=== PATIENT | male | born 1990 | race Hispanic/Latino ===

== ENCOUNTER 2024-05-01 07:25 | Emergency (ER) | payer OTHER ==
[~2024-05-01] VITALS: Ht 165.1 cm; Wt 79.4 kg
--- NOTE | 2024-05-01 07:30 | NUR ---
PT JUST PLACED IN ED BED 9
[2024-05-01 08:08] LABS: BASOPHILS # (AUTO) 0.07 K/uL (0.00-0.20); BASOPHILS % (AUTO) 0.3 % (0.0-5.0); EOSINOPHILS # (AUTO) 0.11 K/uL (0.00-0.70); EOSINOPHILS % (AUTO) 0.5 % (0.0-8.0); IMMATURE GRANULOCYTE ABSOLUTE 0.13 K/uL (0-1); LYMPHOCYTES % (AUTO) 8.5 % (21.0-51.0); MEAN CORPUSCULAR HEMOGLOBIN 30.8 pg (27.0-33.0); MEAN CORPUSCULAR HGB CONC 35.5 g/dL (32.0-36.0); MONOCYTES # (AUTO) 1.2 K/uL (0.1-1.0); MONOCYTES % (AUTO) 4.8 % (3.0-13.0); NEUTROPHILS # (AUTO) 20.4 K/uL (1.8-7.7); NEUTROPHILS % (AUTO) 85.4 % (40.0-77.0); PLATELET COUNT (AUTO) 284 K/uL (130-400); RED BLOOD CELL COUNT(AUTO) 5.06 MIL/uL (4.50-6.20); RED CELL DISTRIBUTION WIDTH 12.2 % (11.0-15.5); WHITE BLOOD COUNT (AUTO) 23.9 K/uL (4.8-10.8)
[2024-05-01 08:13] LABS: CREATININE 1.2 mg/dL (0.5-1.3); POTASSIUM 3.3 mmol/L (3.5-5.1)
--- NOTE | 2024-05-01 08:23 | ERN ---
ED Note History of Present Illness Stated Complaint: CP Chief Complaint: Chest Pain Time Seen by MD: 07:30 Dictation: 34-year-old male presents to the ED for evaluation of chest pain onset [employer]. Patient reports he was working when suddenly he felt chest pain, chest pressure and shortness a breath. As per patient he has not had a similar episode before. Allergies: Coded Allergies: No Known Allergies (Unverified Allergy, Unknown, 05/01/24) Past Medical History Past Medical History: No Pertinent History Surgical History: None Review of System Dictation Constitutional: Negative for fever,chills, and weight loss Eyes: Negative for injury, pain,redness, and discharge ENT: Negative for injury,pain or swelling Cardiovascular: Positive for chest pain, negative for palpitations, and edema Respiratory: Positive for shortness of breath, negative for cough, and wheezing, Abdomen/GI: Negative for abdominal pain, nausea, vomiting, diarrhea, and constipation Back: Negative for injury and pain : Negative for injury, bleeding and discharge MS/Extremity: Negative for injury and deformity Skin: Negative for rash, and discoloration Neuro: Negative for headache, weakness, numbness, tingling, and seizure Psych: Negative for suicide ideation, homicidal ideation, and hallucinations Initial Vital Sign VS Vital Signs Date Time Temp Pulse Resp B/P (MAP) Pulse Ox O2 Delivery O2 Flow Rate FiO2 05/01/24 07:28 98.6 79 18 156/86 98 05/01/24 07:40 Room Air* 0 21 Physical Exam Dictation General: awake, alert, NAD Head/Face: Normocephalic, atraumatic Eyes: PERRL, EOMI, vision at baseline ENT: oral cavity clear, TMs clear, no signs of infection Neck: Trachea midline, supple, no nuchal rigidity Cardiovascular: Tachycardic No MRGs, no JVD Respiratory: CTAB, no respiratory distress, No rales or wheezes Abdomen: Soft, non-tender, non-distended, normal bowel sounds, no guarding or rebound. Skin: Warm, dry, normal turgor, no rash MS/Extremity: Pulses equal, no cyanosis, neurovascular intact, FROM Neuro: COAx4, GCS 15, strength 5/5, CN 2-12 intact, normal cerebellar exam, normal gait, Psych: Normal behavior, mood, and affect normal Results (Laboratory/Radiology) Laboratory/Radiology Laboratory Tests Test 11/27/24 07:43 05/01/24 08:26 05/01/24 08:49 05/01/24 09:19 White Blood Count 23.9 K/uL (4.8-10.8) H Red Blood Count 5.06 MIL/uL (4.50-6.20) Hemoglobin 15.6 g/dL (14.0-18.0) Hematocrit 44.0 % (42-54) Mean Corpuscular Volume 87.0 fL (79-99) Mean Corpuscular Hemoglobin 30.8 pg (27.0-33.0) Mean Corpuscular Hemoglobin Concent 35.5 g/dL (32.0-36.0) Red Cell Distribution Width 12.2 % (11.0-15.5) Platelet Count 284 K/uL (130-400) Mean Platelet Volume 8.8 fL (7.5-10.5) Immature Granulocyte % (Auto) 0.5 % (0-1) Neutrophils (%) (Auto) 85.4 % (40.0-77.0) H Lymphocytes (%) (Auto) 8.5 % (21.0-51.0) L Monocytes (%) (Auto) 4.8 % (3.0-13.0) Eosinophils (%) (Auto) 0.5 % (0.0-8.0) Basophils (%) (Auto) 0.3 % (0.0-5.0) Neutrophils # (Auto) 20.4 K/uL (1.8-7.7) H Lymphocytes # (Auto) 2.0 K/uL (1.0-4.8) Monocytes # (Auto) 1.2 K/uL (0.1-1.0) H Eosinophils # (Auto) 0.11 K/uL (0.00-0.70) Basophils # (Auto) 0.07 K/uL (0.00-0.20) Absolute Immature Granulocyte (auto 0.13 K/uL (0-1) Nucleated Red Blood Cells 0.0 % (0.0-0.19) White Cell Morphology Comment See comments D-Dimer Quantitative (PE/DVT) 151 ng/mL (0-500) Sodium Level 135 mmol/L (136-145) L Potassium Level 3.3 mmol/L (3.5-5.1) L Chloride Level 97 mmol/L (101-111) L Carbon Dioxide Level 27 mmol/L (21-32) Blood Urea Nitrogen 15 mg/dL (7-18) Creatinine 1.2 mg/dL (0.5-1.3) Glomerular Filtration Rate Calc 82 mL/min (>90) Random Glucose 112 mg/dL (70-105) H Total Calcium 9.1 mg/dL (8.5-10.1) Troponin I High Sensitivity < 4 ng/L (4-75) L Troponin I < 0.05 ng/mL (0.00-0.05) Influenza Type A Antigen Negative For Type A Influenza Type B Antigen Negative For Type B SARS-CoV-2 Antigen (Rapid) PRESUMPTIVE NEGATIVE Urine Color COLORLESS (YELLOW) Urine Appearance CLEAR (CLEAR) Urine pH 6.0 (5.0-8.0) Urine Specific [place] 1.009 (1.001-1.031) Urine Protein NEGATIVE mg/dL (NEGATIVE) Urine Glucose (UA) NEGATIVE mg/dL (NEGATIVE) Urine Ketones NEGATIVE mg/dL (NEGATIVE) Urine Occult Blood NEGATIVE (NEGATIVE) Urine Nitrate NEGATIVE (NEGATIVE) Urine Bilirubin NEGATIVE mg/dL (NEGATIVE) Urine Urobilinogen 0.2 mg/dL (0.2-1.0) Urine Leukocyte Esterase NEGATIVE Mehran/uL Labs Reviewed?: Yes EKG Comment: EKG 05/01/2024 time 726 ventricular rate 117, sinus tachycardia, left axis deviation, ST elevation, consider inferior injury. No STEMI. X-RAY Comment: X-ray independently visualized by me REASON: CHEST PAIN ORDERING PHYSICIAN: JAYDE NEW MD PROCEDURE: CXR1VW - CHEST 1VW CHEST 1VW REASON: CHEST PAIN COMPARISON: None. FINDINGS: Single view of the chest was obtained. Lungs are clear. Heart size is normal. There is no pulmonary vascular congestion. Mediastinum and bony thorax appear unremarkable. IMPRESSION: 1. Normal single view chest x-ray. DICTATED BY: MARIAH KAM MD DATE: 05/01/24 0840 ED Course ED Course Orders Procedure Category Date Status Time Chest 1vw RAD 05/01/24 Resulted 07:31 12 Lead Ekg Tracing- EKG 05/01/24 Complete Technical 07:31 Cbc With Differential LAB 05/01/24 Complete 07:31 Urinalysis Profile LAB 05/01/24 Complete 07:31 Troponin Poc Order LAB 05/01/24 Complete Only 07:31 Basic Metabolic Panel LAB 05/01/24 Complete 07:31 D-Dimer LAB 05/01/24 Complete 08:13 Covid19 (Sars Antigen LAB 05/01/24 Complete Rapid) 08:42 Influenza Type A & B, LAB 05/01/24 Complete Rapid 08:42 0.9%Nacl 1000ml (Ns PHA 05/01/24 Complete 1000ml) 09:00 Troponin I High LAB 05/01/24 Complete Sensitivity 09:27 Current Medications Medications (Trade) Dose Ordered Sig/Sissy Route PRN Reason Start Time Stop Time Status Last Admin Dose Admin Sodium Chloride 1,000 ml @ 0 mls/hr ONCE ONCE IV 05/01/24 09:00 05/01/24 09:01 DC 05/01/24 08:51 Vital Signs Date Time Temp Pulse Resp B/P (MAP) Pulse Ox O2 Delivery O2 Flow Rate FiO2 05/01/24 10:25 98.6 97 20 124/79 98 Room Air* 0 05/01/24 08:51 98.6 102 20 118/74 98 Room Air* 0 05/01/24 07:40 110 20 139/82 97 Room Air* 0 05/01/24 07:28 98.6 79 18 156/86 98 HEART Score Response (Comments) Value History: Low suspicion (0) 0 EKG: Normal 0 Age: < 45yrs (0) 0 Risk Factors: No known risk factors (0) 0 Initial Troponin: Normal limit (0) 0 HEART Score Risk: Low Risk for MACE (1-3) Total 0 Medical Decision Making MDM MDM: Differential diagnosis: Tachycardia, chest pain, palpitations Previous outside records reviewed: Old ER visits. Need for hospitalization: Patient does not meet criteria for hospitalization. Need for emergency major/minor surgery: No Patient's prior external medical records from other ER visits were reviewed by me as indicated. Prior testing and results from previous visits were reviewed. Prior tests were taken into account with medical decision making and resource ut ilization, independent historian/historians were used to obtain complete medical history. I independently interpreted the test that were performed, results were reviewed by me and considered findings on radiology if ordered. Medical management and examination interpretation discussions were had by me with other qualified healthcare professionals as indicated for the patient's car e. Patient is improving and stable. Discussed physical findings, results, current treatment plan for discharge and plan of treatment with patient. Follow up and return to emergency department and warnings for any new or worsening conditions given. Patient understands and agrees with plan discussed. All questions have been answered at this time. DX & DISP Disposition: Discharge Departure Impression: Primary Impression: Chest pain Additional Impression: Palpitations Condition: Stable Referrals: NONE (PCP) I have reviewed, & agreed with my scribe's, documentation. (Entered by Lauren Harry, acting as a scribe for Dr. New) I personally scribed for JAYDE NEW MD ([email or web address]) on 05/01/24 at 08:23. Electronically submitted by Lauren Harry ([email or web address]). I personally scribed for JAYDE NEW MD ([email or web address]) on 05/01/24 at 1 0:35. Electronically submitted by Lauren Haryr ([email or web address]). I personally scribed for JAYDE NEW MD ([email or web address]) on 05/01/24 at 10:45. Electronically submitted by Lauren Harry ([email or web address]). JAYDE NEW MD May 01, 2024 08:23
--- NOTE | 2024-05-01 08:41 | EKG ---
[facility] Test Date: 2024-05-01 Test Time: 07:26:21 Pat Name: JOSE PELAEZ Department: [facility] Room: Gender: M [employer]: [id number] : 1990 Requested By: JAYDE NEW Order Number: [id number] Reading MD: Tha Martínez Measurements Intervals [place] Rate: 117 P: 62 KS: 155 QRS: -52 QRSD: 91 T: 67 QT: 313 QTc: 437 Interpretive Statements Sinus tachycardia Left axis deviation ST elevation, consider inferior injury No previous ECG available for comparison Electronically Signed On 05-01-2024 19:17:39 MOLD SWABBER by Tha Martínez Please click the below link to view image of tracing.
--- NOTE | 2024-05-01 08:43 | HMCIMG ---
CHEST 1VW REASON: CHEST PAIN COMPARISON: None. FINDINGS: Single view of the chest was obtained. Lungs are clear. Heart size is normal. There is no pulmonary vascular congestion. Mediastinum and bony thorax appear unremarkable. IMPRESSION: 1. Normal single view chest x-ray.
[2024-05-01] MEDS: 0.9%NACL 1000ML 1,000 ML IV ONE (08:51)
[2024-05-01 09:23] LABS: COVID19 (SARS ANTIGEN RAPID) PRESUMPTIVE NEGATIVE (NEGATIVE); INFLUENZA TYPE A Negative For Type A (NEGATIVE); INFLUENZA TYPE B Negative For Type B (NEGATIVE)
[2024-05-01 10:22] LABS: APPEARANCE,URINE CLEAR (CLEAR); BILIRUBIN,URINE NEGATIVE (NEGATIVE); COLOR,URINE COLORLESS (YELLOW); GLUCOSE, URINE (UA) NEGATIVE (NEGATIVE); KETONES,URINE NEGATIVE (NEGATIVE); LEUKOCYTE ESTERASE ,URINE NEGATIVE Leu/uL (NEGATIVE); NITRATE,URINE NEGATIVE (NEGATIVE); OCCULT BLOOD,URINE NEGATIVE (NEGATIVE); PROTEIN,URINE NEGATIVE (NEGATIVE); UROBILINOGEN,URINE 0.2 mg/dL (0.2-1.0)
[2024-05-01 10:25] VITALS: BP 124/79; PULSE 97; RESP 20; TEMP 98.6; O2SAT 98
[2024-05-01 10:29] LABS: ADD UA MICROSCOPIC NO
== END 2024-05-01 10:48 | disposition home or self-care (01) ==
LOC: EDH 07:25
DX: R07.89 Other chest pain (principal); R00.2 Palpitations; Z20.822 Contact with and (suspected) exposure to COVID-19
CPT/HCPCS: 99285; 96360; 71045; 96361; 87426; 84484 ×2; 80048; 85025; 85378; 87804 ×2; 81003; 36415; 93005; J7030